=== PATIENT | male | born 1980 | race Caucasian/White ===

== ENCOUNTER 2022-03-20 22:10 | Emergency (ER) | payer BC, OTHER | END 2022-03-20 22:40 | disposition home or self-care (01) | LOC: DL.ED 22:10 | DX: S40.862A Insect bite (nonvenomous) of left upper arm, initial encounter (principal); W57.XXXA Bitten or stung by nonvenomous insect and other nonvenomous arthropods, initial encounter | CPT/HCPCS: 99281 ==